=== PATIENT | female | born 1975 | race Caucasian/White ===

== ENCOUNTER 2017-05-30 17:52 | Inpatient (IN) | payer MEDICAID ==
[~2017-05-30] VITALS: Ht 165.1 cm; Wt 108.0 kg
[2017-05-30] MEDS ORDERED: morphine 4 MG/ML VIAL IV STA (20:08)
[2017-05-30] MEDS ORDERED: SOD CHLORIDE 0.9% 1,000 ML IV STA (20:08)
[2017-05-30] MEDS ORDERED: ONDANSETRON 4 MG INJ IV STA (20:08)
[2017-05-30] MEDS ORDERED: ACETAMINOPHEN 325 MG TAB PO ONE (20:30)
--- NOTE | 2017-05-30 20:31 | ERD ---
ER Documentation Chief Complaint Date/Time DATE: 05/30/17 TIME: 20:28 Chief Complaint VOMITTING SINCE THIS MORNING, CHILLS AND FEVER HPI 41-year-old female presents here in emergency department for multiple complaints. Patient is complaining of shortness of breath, generalized abdominal pain, flank pain, pelvic pain fever chills that started today. Patient denies any cough. Patient denies any chest pain. Patient complains of dizziness. Patient is complaining of generalized abdominal pain flank pain pelvic pain cramping pain succession scale, not better or worse with anything. Patient had an IUD placed 10 years ago, was felt to be due to be removed. Patient does not have any vaginal itching vaginal discharge. Patient denies any hematuria or dysuria. Patient did not take any medications to help with symptoms. Patient has not seen a doctor for years. ROS All systems reviewed and are negative except as per history of present illness. Medications Home Meds Discontinued Reported Medications [none] Unknown Strength No Conflict Check 05/30/17 Allergies Allergies: Coded Allergies: No Known Allergy (Unverified , 05/30/17) PMhx/Soc Medical and Surgical Hx: pt denies Surgical Hx History of Surgery: No Anesthesia Reaction: No Hx Neurological Disorder: No Hx Respiratory Disorders: No Hx Cardiac Disorders: No Hx Psychiatric Problems: No Hx Miscellaneous Medical Probl: No Hx Alcohol Use: No Hx Substance Use: No Hx Tobacco Use: No Smoking Status: Never smoker FmHx Family History: No coronary disease, No diabetes, No other Physical Exam Vitals Vital Signs Date Time Temp Pulse Resp B/P Pulse Ox O2 Delivery O2 Flow Rate FiO2 05/31/17 01:05 98.7 84 18 128/67 98 Room Air 05/30/17 19:03 102.5 99 24 146/71 100 05/30/17 18:05 99.9 103 25 138/78 100 Physical Exam GENERAL: The patient is well developed and appropriate for usual state of health, in no apparent distress. CHEST: Clear to auscultation bilaterally. There are no rales, wheezes or rhonchi. HEART: Regular rate and rhythm. No murmurs, clicks, rubs or gallops. No S3 or S4. ABDOMEN: Soft, generalized abdominal tenderness. Good bowel sounds. No rebound or guarding. No gross peritonitis. No gross organomegaly or masses. No Lund sign or McBurney point tenderness. BACK: No midline or flank tenderness. EXTREMITIES: Equal pulses bilaterally. There is no peripheral clubbing, cyanosis or edema. No focal swelling or erythema. Full range of motion. Grossly neurovascularly intact. NEURO: Alert and oriented. Cranial nerves 2-12 intact. Motor strength in all 4 extremities with 5/5 strength. Sensation grossly intact. Normal speech and gait. SKIN: There is no apparent rash or petechia. The skin is warm and dry. HEMATOLOGIC AND LYMPHATIC: There is no evidence of excessive bruising or lymphedema. No gross cervical, axillary, or inguinal lymphadenopathy. Result Diagram: 05/30/17202905/30/172029 Results 24 hrs Laboratory Tests Test 05/30/17 20:30 05/30/17 22:24 White Blood Count 22.710^3/ul Red Blood Count 4.2510^6/ul Hemoglobin 13.5g/dl Hematocrit 39.8% Mean Corpuscular Volume 93.6fl Mean Corpuscular Hemoglobin 31.8pg Mean Corpuscular Hemoglobin Concent 33.9g/dl Red Cell Distribution Width 14.0% Platelet Count 67365^3/UL Mean Platelet Volume 11.0fl Neutrophils % 88.9% Lymphocytes % 5.8% Monocytes % 4.1% Eosinophils % 0.0% Basophils % 0.4% Nucleated Red Blood Cells % 0.0/100WBC Neutrophils # 20.210^3/ul Lymphocytes # 1.310^3/ul Monocytes # 0.910^3/ul Eosinophils # 0.010^3/ul Basophils # 0.110^3/ul Nucleated Red Blood Cells # 0.010^3/ul Urine Color YELLOW Urine Clarity SLIGHTLY CLOUDY Urine pH 8.0 Urine Specific [place] 1.021 Urine Ketones 1+mg/dL Urine Nitrite NEGATIVEmg/dL Urine Bilirubin NEGATIVEmg/dL Urine Urobilinogen NEGATIVEmg/dL Urine Leukocyte Esterase 2+Herman/ul Urine Microscopic RBC 23/HPF Urine Microscopic WBC 15/HPF Urine Squamous Epithelial Cells FEW/HPF Urine Bacteria FEW/HPF Urine Hemoglobin 2+mg/dL Urine Glucose NEGATIVEmg/dL Urine Total Protein NEGATIVEmg/dl Sodium Level 137mmol/L Potassium Level 4.0mmol/L Chloride Level 105mmol/L Carbon Dioxide Level 20mmol/L Anion Gap 16 Blood Urea Nitrogen 14mg/dl Creatinine 0.77mg/dl Glucose Level 134mg/dl Lactic Acid Level 2.8mmol/L 1.7mmol/L Calcium Level 9.4mg/dl Total Bilirubin 0.5mg/dl Direct Bilirubin 0.00mg/dl Indirect Bilirubin 0.5mg/dl Aspartate Amino Transf (AST/SGOT) 31IU/L Alanine Aminotransferase (ALT/SGPT) 49IU/L Alkaline Phosphatase 106IU/L Troponin I < 0.012ng/ml Total Protein 8.5g/dl Albumin 4.5g/dl Globulin 4.00g/dl Albumin/Globulin Ratio 1.12 Lipase 110U/L Current Medications Medications (Trade) Dose Ordered Sig/Ida Route PRN Reason Start Time Stop Time Status Last Admin Dose Admin Sodium Chloride (NS) 1,000 ml @ 1,000 mls/hr Q1H STAT IV 05/30/17 20:08 05/30/17 21:07 DC 05/30/17 20:57 Morphine Sulfate (morphine) 4 mg ONCE STAT IV 05/30/17 20:08 05/30/17 20:10 DC 05/30/17 22:37 Ondansetron HCl (Zofran Inj) 4 mg ONCE STAT IV 05/30/17 20:08 05/30/17 20:10 DC 05/30/17 22:37 Acetaminophen (Tylenol Tab) 650 mg ONCE ONCE PO 05/30/17 20:30 05/30/17 20:31 DC 05/30/17 22:36 Sodium Chloride 2370 ml 2,370 ml BOLUS OVER 2 HOURS STAT IV* 05/30/17 21:14 05/30/17 21:17 DC 05/30/17 22:40 Ceftriaxone Sodium (Rocephin) 50 ml @ 100 mls/hr ONCE STAT IVPB 05/30/17 21:14 05/30/17 21:43 DC 05/30/17 22:38 IV Flush 10 ml 10 ml STK-MED ONCE .ROUTE 05/30/17 21:26 05/30/17 21:27 DC 05/30/17 21:37 Sodium Chloride (NS) 100 ml @ ud STK-MED ONCE .ROUTE 05/30/17 21:26 05/30/17 21:27 DC 05/30/17 21:37 Iohexol (Omnipaque 300mg/ ml) 150 ml STK-MED ONCE .ROUTE 05/30/17 21:26 05/30/17 21:27 DC 05/30/17 21:37 Patient was given medication for pain here in emergency department, after treatment, patient verbalized feeling much better. Patient's pain is improved. Patient was given Zofran here in the emergency department. After treatment, patient was able to tolerate po fluids here in the emergency department without any vomiting. There is no signs and symptoms of dehydration. Patient was given medicines for fever control here in the emergency department. After treatment, patient temperature improved and lower. Patient appears well and is hemodynamically stable. Normal saline IV bolus was given here in emergency department for rehydration, patient tolerated IV fluids. EKG was done, read by me and is normal sinus rhythm at a rate of 93, normal axis , there is no ST changes or changes in the EKG that indicates any cardiac emergencies at this time. Patient's EKG was also reviewed by Dr. Melgar. Impression: no acute findings on EKG PROCEDURE: US Pelvis Transabdominal and Transvaginal. CLINICAL INDICATION: Pelvic pain, IUD. TECHNIQUE: Multiple sonographic images of the pelvis were obtained utilizing balderas scale, Doppler and color flow imaging with transabdominal and endovaginal technique. The images were reviewed on a PACS workstation. COMPARISON: None. FINDINGS: The uterus is visualized and measures 10.5 x 5.9 x 5.6 cm. The endometrial echo complex measures 5.1 mm in thickness. Echogenic IUD is noted in the endometrial canal. Few small Nabothian cysts are seen in the cervix. No uterine masses are identified. The right ovary measures 2.7 x 1.5 x 1.4 cm . The left ovary is not well visualized. Both ovaries demonstrate a normal echogenicity and vascular flow. No adnexal masses or pelvic free fluid are noted. IMPRESSION: Echogenic IUD in the endometrial canal. Small Nabothian cysts in the cervix. Left ovary not well visualized. If characterization of this structure is needed repeat exam or MRI is recommended. If further characterization of the organs of the pelvis is needed MRI should be considered. RPTAT: AA .Dejon Krishnamurthy MD, Date Time Electronically viewed and signed by .Dejon Krishnamurthy MD, MD on 05/30/2017 21:13 .P/ CC: SIMON HUERTA NP PROCEDURE: CT ABDOMEN/PELVIS WITH CONTRAST CLINICAL INDICATION: 41-year-old female with abdominal pain. TECHNIQUE: The study was performed utilizing a GE [employer] VCT 64-slice CT scanner. Direct axial sections were obtained through the abdomen and pelvis with the use of 100 cc of Omnipaque-300 nonionic intravenous contrast material. Sagittal and coronal reformations were obtained. One or more of the following dose reduction techniques were utilized: automated exposure control, adjustment of the mA and/or kV according to patient's size or use of iterative reconstruction technique. The images were reviewed on a PACS workstation. CTD/ vol = 23.6 mGy; Total Exam DLP = 1315.6 mGy-cm. COMPARISON: None. FINDINGS: There is trace bibasilar subsegmental atelectasis. There is no evidence for significant pleural effusion. The liver has a normal size and contour. There is diffuse decreased density throughout the liver consistent with fatty infiltration but without focal areas of abnormal density or contrast enhancement. No intrahepatic nor extrahepatic biliary ductal dilatation is seen. The gallbladder demonstrates no wall thickening nor pericholecystic fluid. No biliary stones are evident. The pancreas is without areas of abnormal attenuation or contrast enhancement. This spleen is identified and has a normal size without abnormal density or contrast enhancement. The adrenal glands are unremarkable. The kidneys are functional bilaterally without abnormal density. No hydroureteronephrosis nor nephroureterolithiasis is evident. The urinary bladder contains urine. There is a mild hiatal hernia. There is a small umbilical hernia with an opening of 11 x 13 mm containing fat. There is mild retained stool identified within the ascending and transverse colon without obstruction. The appendix is visualized and is without edema or surrounding inflammatory reaction. The uterus is anteflexed. There is an intrauterine device. There is no significant free fluid. The aortoiliac vessels are without aneurysmal dilatation. The osseous structures are intact. IMPRESSION: 1. Hepatic steatosis. 2. Mild hiatal hernia. 3. Mild retained stool within the proximal colon without obstruction. 4. No CT evidence for appendicitis. 5. Intrauterine device. .Alex Clarke MD, MD Date Time Electronically viewed and signed by .Alex Clarke MD, MD on 05/30/2017 22:17 .M/ CC: SIMON HUERTA NP Severe Sepsis at 2109, source UTI, started on IV Rocephin, Fluid 30 mg/kg started immediately This Patient's infectious symptoms have not stabilized and the patient is at risk of rapid decompensation. The patient will be admitted for careful hydration, antibiotic therapy, and infectious source control. Severe Sepsis Assessment: Infectious Source: [pyleonephritis] End organ damage indicated by: [Lactate > 2.0 mmol/L Severe Sepsis Managment: Blood Cultures X 2 before broad spectrum antibiotics initiated within 3 hours of recognition. 30 ml/kg NS bolus Completed Initial Lactate: [2.8] Repeat Lactate [1.7] Critical Care: Time: [40] minutes Treatments/Evaluations: Emergent fluid management, while maintaining close respiratory support. Immediate broad spectrum antibiotic therapy. Simultaneous assessment for possible sources in order to direct therapy. Consideration for invasive and chemical support to prevent respiratory or cardiac collapse. Procedures/MDM Medical Decision Making: Patient symptoms consistent with pyelonephritis with severe sepsis. Patient lactic acid was elevated at 2.8, WBC at 22,000, patient was febrile and tachycardic upon arrival here in emergency department. Patient was given IV fluids here 30 mg/kg normal saline, IV Rocephin was given, patient appears once hemodynamically stable at this time. Patient will be admitted to the hospital. Case with my attending physician, Dr. Menard, will admit the patient to the hospital Departure Diagnosis: Primary Impression: Pyelonephritis Additional Impression: Severe sepsis Condition: Serious SIMON HUERTA NP May 30, 2017 20:31
[2017-05-30 20:49] LABS: ABNORMAL IP MESSAGE 1; BASOPHIL # 0.1 10^3/ul (0.0-0.1); BASOPHILS % 0.4 % (0.0-2.0); HEMATOCRIT 39.8 % (37.0-47.0); HEMOGLOBIN 13.5 g/dl (12.0-16.0); LYMPHOCYTES # 1.3 10^3/ul (0.8-2.9); LYMPHOCYTES % 5.8 % (15.0-51.0); MEAN CORPUSCULAR HEMOGLOBIN 31.8 pg (29.0-33.0); MEAN CORPUSCULAR HGB CONC 33.9 g/dl (32.0-37.0); MEAN CORPUSCULAR VOLUME 93.6 fl (82.0-101.0); MONOCYTE # 0.9 10^3/ul (0.3-0.9); MONOCYTES % 4.1 % (0.0-11.0); NEUTROPHIL # 20.2 10^3/ul (1.6-7.5); NEUTROPHILS % 88.9 % (39.0-77.0); PLATELET COUNT 311 10^3/UL (140-415); RED BLOOD COUNT 4.25 10^6/ul (4.20-5.40); WHITE BLOOD COUNT 22.7 10^3/ul (4.8-10.8)
[2017-05-30 20:58] LABS: ADD UMIC YES; UR ASCORBIC ACID NEGATIVE (NEGATIVE); UR BACTERIA FEW /HPF (NONE SEEN); UR BILIRUBIN (Dip) NEGATIVE (NEGATIVE); UR BLOOD (Dip) 2+ mg/dL (NEGATIVE); UR CLARITY SLIGHTLY CLOUDY (CLEAR); UR COLOR YELLOW (YELLOW); UR GLUCOSE (Dip) NEGATIVE (NEGATIVE); UR KETONES (Dip) 1+ mg/dL (NEGATIVE); UR LEUKOCYTE ESTERASE (Dip) 2+ Leu/ul (NEGATIVE); UR NITRITE (Dip) NEGATIVE (NEGATIVE); UR RBC 23 /HPF (0-5); UR SPECIFIC GRAVITY (Dip) 1.021 (1.003-1.030); UR SQUAMOUS EPITHELIAL CELL FEW /HPF (FEW); UR TOTAL PROTEIN (Dip) NEGATIVE (NEGATIVE); UR UROBILINOGEN (Dip) NEGATIVE (NEGATIVE)
[2017-05-30 21:03] LABS: POSITIVE DIFF @See below
[2017-05-30 21:07] LABS: ALBUMIN 4.5 g/dl (3.3-4.9); ALBUMIN/GLOBULIN RATIO 1.12; BILIRUBIN,INDIRECT 0.5 mg/dl (0-1.1); BILIRUBIN,TOTAL 0.5 mg/dl (0.2-1.3); CALCIUM 9.4 mg/dl (8.4-10.2); CREATININE 0.77 mg/dl (0.44-1.00); TOTAL PROTEIN 8.5 g/dl (6.1-8.1)
[2017-05-30] MEDS ORDERED: SODIUM CHLORIDE 0.9% 1L BAG IV* STA (21:14)
[2017-05-30] MEDS ORDERED: CEFTRIAXONE 1 GM/50 ML (PMX) 50 ML IVPB STA (21:14)
--- NOTE | 2017-05-30 21:14 | RADRPT ---
PROCEDURE: US Pelvis Transabdominal and Transvaginal. CLINICAL INDICATION: Pelvic pain, IUD. TECHNIQUE: Multiple sonographic images of the pelvis were obtained utilizing balderas scale, Doppler a nd color flow imaging with transabdominal and endovaginal technique. The images were reviewed on a PACS workstation. COMPARISON: None. FINDINGS: The uterus is visualized and measures 10.5 x 5.9 x 5.6 cm. The endometrial echo complex measures 5.1 mm in thickness. Echogenic IUD is noted in the endometrial canal. Few small Nabothian cysts are see n in the cervix. No uterine masses are identified. The right ovary measures 2.7 x 1.5 x 1.4 cm . The left ovary is not well visualized. Both ovaries demonstrate a normal echogenicity and vascular flow. No adnexal masses or pelvic free fluid are noted. IMPRESSION: Echogenic IUD in the endometrial canal. Small Nabothian cysts in the cervix. Left ovary not well visualized. If characterization of this structure is needed repeat exam or MRI i s recommended. If further characterization of the organs of the pelvis is needed MRI should be considered. RPTAT: AA .Dejon Krishnamurthy MD, MD Date Time Electronically viewed and signed by .Dejon Krishnamurthy MD, MD on 05/30/2017 21:13 .P/
[2017-05-30] MEDS ORDERED: IOHEXOL 300MG/ML 150 ML BTL ONE (21:26)
[2017-05-30] MEDS ORDERED: SOD CHLORIDE 0.9% 100 ML ONE (21:26)
--- NOTE | 2017-05-30 21:36 | RADRPT ---
PROCEDURE: XR Chest 1 View. CLINICAL INDICATION: Shortness of breath. TECHNIQUE: AP view of the chest was obtained. COMPARISON: None. FINDINGS: Heart is borderline large. Subsegmental atelectasis is seen in the bilateral lower lobes. No consoli dations are identified. No pneumothorax is seen. Osseous structures are intact. IMPRESSION: Borderline cardiomegaly. Subsegmental atelectasis in the bilateral lower lobes. RPTAT: AA .Dejon Krishnamurthy MD, MD Date Time Electronically viewed and signed by .Dejon rKishnamurthy MD, on 05/30/2017 21:36 .P/
--- NOTE | 2017-05-30 22:18 | RADRPT ---
PROCEDURE: CT ABDOMEN/PELVIS WITH CONTRAST CLINICAL INDICATION: 41-year-old female with abdominal pain. TECHNIQUE: The study was performed utilizing a GE [employer] VCT 64-slice CT scanner. Direct axia l sections were obtained through the abdomen and pelvis with the use of 100 cc of Omnipaque-300 [place] onic intravenous contrast material. Sagittal and coronal reformations were obtained. One or more of the following dose reduction techniques were utilized: automated exposure control, adjustment of the mA and/or kV according to patient's size or use of iterative reconstruction technique. The images were reviewed on a PACS workstation. CTD/vol = 23.6 mGy; Total Exam DLP = 1315.6 mGy-cm. COMPARISON: None. FINDINGS: There is trace bibasilar subsegmental atelectasis. There is no evidence for significant pleural eff usion. The liver has a normal size and contour. There is diffuse decreased density throughout the l iver consistent with fatty infiltration but without focal areas of abnormal density or contrast enha ncement. No intrahepatic nor extrahepatic biliary ductal dilatation is seen. The gallbladder demonst rates no wall thickening nor pericholecystic fluid. No biliary stones are evident. The pancreas is w ithout areas of abnormal attenuation or contrast enhancement. This spleen is identified and has a n ormal size without abnormal density or contrast enhancement. The adrenal glands are unremarkable. Th e kidneys are functional bilaterally without abnormal density. No hydroureteronephrosis nor nephrour eterolithiasis is evident. The urinary bladder contains urine. There is a mild hiatal hernia. There is a small umbilical hernia with an opening of 11 x 13 mm containing fat. There is mild retained stool identified within the ascending and transverse colon without obstruction. The appendix is vis ualized and is without edema or surrounding inflammatory reaction. The uterus is anteflexed. There i s an intrauterine device. There is no significant free fluid. The aortoiliac vessels are without an eurysmal dilatation. The osseous structures are intact. IMPRESSION: 1. Hepatic steatosis. 2. Mild hiatal hernia. 3. Mild retained stool within the proximal colon without obstruction. 4. No CT evidence for appendicitis. 5. Intrauterine device. .Gilbert Tricia, MD, MD Date Time Electronically viewed and signed by .Alex Clarke MD, MD on 05/30/2017 22:17 .M/
[2017-05-31] VITALS (13 sets, daily range): BP systolic 110–135; BP diastolic 57–87; PULSE 69–84; RESP 17–20; TEMP 98.7; Ht 165.1 cm; Wt 108.0 kg
[2017-05-31] MEDS: SOD CHLORIDE 0.9% 1,000 ML IV SCH ×3 (02:57→13:27)
[2017-05-31] MEDS ORDERED: ALBUTEROL/IPRATROPIUM (NEB) 3 ML AMP HHN PRN (03:00)
[2017-05-31] MEDS ORDERED: morphine 2 MG INJ IV PRN (03:00)
[2017-05-31] MEDS ORDERED: ACETAMINOPHEN 325 MG TAB PO PRN (03:00)
[2017-05-31] MEDS ORDERED: NACL 0.9% 3 ML SYG IV SCH (03:00)
[2017-05-31] MEDS ORDERED: morphine 4 MG/ML VIAL IV PRN (03:00)
[2017-05-31] MEDS ORDERED: ONDANSETRON 4 MG INJ IV PRN (03:00)
--- NOTE | 2017-05-31 04:11 | ERA ---
ER Documentation Chief Complaint Date/Time DATE: 05/30/17 Chief Complaint VOMITTING SINCE THIS MORNING, CHILLS AND FEVER HPI The patient is a 41-year-old female, presenting with acute left low back pain, diffuse abdominal pain, also with fever and vomiting for 1 day. She was initially seen in ED 2 by the [facility]. She denies chest pain, dyspnea, diarrhea, constipation, dysuria. She does not smoke nor drink. Past medical history: None Past surgical history: IUD ROS All systems reviewed and are negative except as per history of present illness. Medications Home Meds Discontinued Reported Medications [none] Unknown Strength No Conflict Check 05/30/17 Allergies Allergies: Coded Allergies: No Known Allergy (Unverified , 05/30/17) PMhx/Soc Medical and Surgical Hx: pt denies Medical Hx, pt denies Surgical Hx History of Surgery: No Anesthesia Reaction: No Hx Neurological Disorder: No Hx Respiratory Disorders: No Hx Cardiac Disorders: No Hx Psychiatric Problems: No Hx Miscellaneous Medical Probl: No Hx Alcohol Use: No Hx Substance Use: No Hx Tobacco Use: No Smoking Status: Never smoker Physical Exam Vitals Vital Signs Date Time Temp Pulse Resp B/P Pulse Ox O2 Delivery O2 Flow Rate FiO2 05/30/17 19:03 102.5 99 24 146/71 100 05/30/17 18:05 99.9 103 25 138/78 100 Physical Exam Const: No acute distress. Head: Atraumatic. Eyes: Normal Conjunctiva. ENT: Normal External Ears, Nose and Mouth. Neck: Full range of motion. No meningismus. Resp: Clear to auscultation bilaterally. Cardio: Regular rate and rhythm. Abd: Soft, non distended, normal bowel sounds, left CVA tenderness, diffuse abdominal mild tenderness, no rigidity, rebound, tenderness Skin: No petechiae or rashes. Back: No midline or flank tenderness. Ext: No cyanosis, or edema. Neur: Awake and alert. No focal deficit Psych: Normal Mood and Affect. Result Diagram: 05/30/17202905/30/172029 Results 24 hrs Laboratory Tests Test 05/30/17 20:30 05/30/17 22:24 White Blood Count 22.710^3/ul Red Blood Count 4.2510^6/ul Hemoglobin 13.5g/dl Hematocrit 39.8% Mean Corpuscular Volume 93.6fl Mean Corpuscular Hemoglobin 31.8pg Mean Corpuscular Hemoglobin Concent 33.9g/dl Red Cell Distribution Width 14.0% Platelet Count 66549^3/UL Mean Platelet Volume 11.0fl Neutrophils % 88.9% Lymphocytes % 5.8% Monocytes % 4.1% Eosinophils % 0.0% Basophils % 0.4% Nucleated Red Blood Cells % 0.0/100WBC Neutrophils # 20.210^3/ul Lymphocytes # 1.310^3/ul Monocytes # 0.910^3/ul Eosinophils # 0.010^3/ul Basophils # 0.110^3/ul Nucleated Red Blood Cells # 0.010^3/ul Urine Color YELLOW Urine Clarity SLIGHTLY CLOUDY Urine pH 8.0 Urine Specific [place] 1.021 Urine Ketones 1+mg/dL Urine Nitrite NEGATIVEmg/dL Urine Bilirubin NEGATIVEmg/dL Urine Urobilinogen NEGATIVEmg/dL Urine Leukocyte Esterase 2+Herman/ul Urine Microscopic RBC 23/HPF Urine Microscopic WBC 15/HPF Urine Squamous Epithelial Cells FEW/HPF Urine Bacteria FEW/HPF Urine Hemoglobin 2+mg/dL Urine Glucose NEGATIVEmg/dL Urine Total Protein NEGATIVEmg/dl Sodium Level 137mmol/L Potassium Level 4.0mmol/L Chloride Level 105mmol/L Carbon Dioxide Level 20mmol/L Anion Gap 16 Blood Urea Nitrogen 14mg/dl Creatinine 0.77mg/dl Glucose Level 134mg/dl Lactic Acid Level 2.8mmol/L 1.7mmol/L Calcium Level 9.4mg/dl Total Bilirubin 0.5mg/dl Direct Bilirubin 0.00mg/dl Indirect Bilirubin 0.5mg/dl Aspartate Amino Transf (AST/SGOT) 31IU/L Alanine Aminotransferase (ALT/SGPT) 49IU/L Alkaline Phosphatase 106IU/L Troponin I < 0.012ng/ml Total Protein 8.5g/dl Albumin 4.5g/dl Globulin 4.00g/dl Albumin/Globulin Ratio 1.12 Lipase 110U/L Current Medications Medications (Trade) Dose Ordered Sig/Ida Route PRN Reason Start Time Stop Time Status Last Admin Dose Admin Sodium Chloride (NS) 1,000 ml @ 1,000 mls/hr Q1H STAT IV 05/30/17 20:08 05/30/17 21:07 DC 05/30/17 20:57 Morphine Sulfate (morphine) 4 mg ONCE STAT IV 05/30/17 20:08 05/30/17 20:10 DC 05/30/17 22:37 Ondansetron HCl (Zofran Inj) 4 mg ONCE STAT IV 05/30/17 20:08 05/30/17 20:10 DC 05/30/17 22:37 Acetaminophen (Tylenol Tab) 650 mg ONCE ONCE PO 05/30/17 20:30 05/30/17 20:31 DC 05/30/17 22:36 Sodium Chloride 2370 ml 2,370 ml BOLUS OVER 2 HOURS STAT IV* 05/30/17 21:14 05/30/17 21:17 DC 05/30/17 22:40 Ceftriaxone Sodium (Rocephin) 50 ml @ 100 mls/hr ONCE STAT IVPB 05/30/17 21:14 05/30/17 21:43 DC 05/30/17 22:38 IV Flush 10 ml 10 ml STK-MED ONCE .ROUTE 05/30/17 21:26 05/30/17 21:27 DC 05/30/17 21:37 Sodium Chloride (NS) 100 ml @ ud STK-MED ONCE .ROUTE 05/30/17 21:26 05/30/17 21:27 DC 05/30/17 21:37 Iohexol (Omnipaque 300mg/ ml) 150 ml STK-MED ONCE .ROUTE 05/30/17 21:26 05/30/17 21:27 DC 05/30/17 21:37 Procedures/[place] [id number] Radiology Main Line: [phone] DIAGNOSTIC IMAGING REPORT Patient: MAXIMILIAN GARCIA : 1975 Age: 41 Sex: F MR #: [id number] DOS: 05/30/172007 Ordering MD: SIMON HUERTA NP Location: [facility] Room/Bed: PROCEDURE: US Pelvis Transabdominal and Transvaginal. CLINICAL INDICATION: Pelvic pain, IUD. TECHNIQUE: Multiple sonographic images of the pelvis were obtained utilizing balderas scale, Doppler and color flow imaging with transabdominal and endovaginal technique. The images were reviewed on a PACS workstation. COMPARISON: None. FINDINGS: The uterus is visualized and measures 10.5 x 5.9 x 5.6 cm. The endometrial echo complex measures 5.1 mm in thickness. Echogenic IUD is noted in the endometrial canal. Few small Nabothian cysts are seen in the cervix. No uterine masses are identified. The right ovary measures 2.7 x 1.5 x 1.4 cm . The left ovary is not well visualized. Both ovaries demonstrate a normal echogenicity and vascular flow. No adnexal masses or pelvic free fluid are noted. IMPRESSION: Echogenic IUD in the endometrial canal. Small Nabothian cysts in the cervix. Left ovary not well visualized. If characterization of this structure is needed repeat exam or MRI is recommended. If further characterization of the organs of the pelvis is needed MRI should be considered. RPTAT: AA .Dejon Krishnamurthy MD, MD Date Time Electronically viewed and signed by .Dejon Krishnamurthy MD, MD on 05/30/2017 21:13 .P/ CC: SIMON HUERTA NP [place] [id number] Radiology Main Line: [phone] DIAGNOSTIC IMAGING REPORT Patient: MAXIMILIAN GARCIA : 1975 Age: 41 Sex: F MR #: [id number] DOS: 05/30/172007 Ordering MD: SIMON HUERTA NP Location: [facility] Room/Bed: PROCEDURE: CT ABDOMEN/PELVIS WITH CONTRAST CLINICAL INDICATION: 41-year-old female with abdominal pain. TECHNIQUE: The study was performed utilizing a [employer] VCT 64-slice CT scanner. Direct axial sections were obtained through the abdomen and pelvis with the use of 100 cc of Omnipaque-300 nonionic intravenous contrast material. Sagittal and coronal reformations were obtained. One or more of the following dose reduction techniques were utilized: automated exposure control, adjustment of the mA and/or kV according to patient's size or use of iterative reconstruction technique. The images were reviewed on a PACS workstation. CTD/ vol = 23.6 mGy; Total Exam DLP = 1315.6 mGy-cm. COMPARISON: None. FINDINGS: There is trace bibasilar subsegmental atelectasis. There is no evidence for significant pleural effusion. The liver has a normal size and contour. There is diffuse decreased density throughout the liver consistent with fatty infiltration but without focal areas of abnormal density or contrast enhancement. No intrahepatic nor extrahepatic biliary ductal dilatation is seen. The gallbladder demonstrates no wall thickening nor pericholecystic fluid. No biliary stones are evident. The pancreas is without areas of abnormal attenuation or contrast enhancement. This spleen is identified and has a normal size without abnormal density or contrast enhancement. The adrenal glands are unremarkable. The kidneys are functional bilaterally without abnormal density. No hydroureteronephrosis nor nephroureterolithiasis is evident. The urinary bladder contains urine. There is a mild hiatal hernia. There is a small umbilical hernia with an opening of 11 x 13 mm containing fat. There is mild retained stool identified within the ascending and transverse colon without obstruction. The appendix is visualized and is without edema or surrounding inflammatory reaction. The uterus is anteflexed. There is an intrauterine device. There is no significant free fluid. The aortoiliac vessels are without aneurysmal dilatation. The osseous structures are intact. IMPRESSION: 1. Hepatic steatosis. 2. Mild hiatal hernia. 3. Mild retained stool within the proximal colon without obstruction. 4. No CT evidence for appendicitis. 5. Intrauterine device. .Alex Clarke MD, MD Date Time Electronically viewed and signed by .Alex Clarke MD, on 05/30/2017 22:17 .M/ CC: SIMON HUERTA [place] [id number] Radiology Main Line: [phone] DIAGNOSTIC IMAGING REPORT Patient: MAXIMILIAN GARCIA : 1975 Age: 41 Sex: F MR #: [id number] DOS: 05/30/172008 Ordering MD: SIMON HUERTA NP Location: [facility] Room/Bed: PROCEDURE: XR Chest 1 View. CLINICAL INDICATION: Shortness of breath. TECHNIQUE: AP view of the chest was obtained. COMPARISON: None. FINDINGS: Heart is borderline large. Subsegmental atelectasis is seen in the bilateral lower lobes. No consolidations are identified. No pneumothorax is seen. Osseous structures are intact. IMPRESSION: Borderline cardiomegaly. Subsegmental atelectasis in the bilateral lower lobes. RPTAT: AA .Dejon Krishnamurthy MD, Date Time Electronically viewed and signed by .Dejon Krishnamurthy MD, MD on 05/30/2017 21:36 .P/ CC: SIMON HUERTA NP MEDICAL MAKING DECISION: The patient is a 41-year-old female, presenting with acute severe sepsis due to acute left pyelonephritis. She was treated with Tylenol for fever, morphine 4 mg IV for pain and Zofran formula IV for nausea and Rocephin IV for acute pyelonephritis The differential diagnoses considered include but are not limited to cholelithiasis, cholecystitis, cystitis, pancreatitis, hepatitis, gastritis, peptic ulcer disease, gastric ulcer, appendicitis, diverticulitis, cholangitis, choledocholithiasis, partial small bowel obstruction. Admit MDM: Patient's infectious symptoms have not stabilized and the patient is at risk of rapid decompensation. The patient will be admitted for careful hydration, antibiotic therapy, and infectious source control. Severe Sepsis criteria: Infectious source: left pyelonephritis End organ damage indicated by: Lactate > 2.0 mmol/L Sepsis Management: Time of recognition of severe sepsis/septic shock: 20:40 Within 3 hours of recognition: Blood cultures x 2 before broad-spectrum antibiotics: Yes 30 ml/kg NS bolus completed Initial lactate 2.8 Repeat lactate pending Critical Care: Critical care time 35 minutes excluding billable procedure Emergent fluid management while maintaining close respiratory support. Provision of immediate and broad-spectrum antibiotic therapy. Simultaneous assessment for possible sources in order to direct targeted therapy. Consideration for invasive and chemical support to prevent cardiopulmonary collapse. Septic Shock Assessment: Any lactic acid > 4.0 no Persistent hypotension (SBP < 90 or 40 mmHg drop, MAP < 65) despite 30 mL/kg IV fluid bolusno Departure Diagnosis: Primary Impression: Pyelonephritis Additional Impression: Severe sepsis Condition: Stable Additional Instructions: I discussed the findings with the patient. I discussed the patient with his physician Dr. Mccracken at 10:50 pm who was made aware of the lab, the treatment, the patient condition. The patient is admitted to LINDA Benitez MD May 31, 2017 04:04
--- NOTE | 2017-05-31 06:39 | HP ---
Date/Time of Note Date/Time of Note DATE: 05/31/17 TIME: 06:31 Assessment/Plan VTE Prophylaxis VTE Prophylaxis Intervention: SCD's Lines/Catheters IV Catheter Type (from Nrs): Peripheral IV Urinary Cath still in place: No Assessment/Plan Assessment/Plan 1. Sepsis, as evidenced by fever and leukocytosis, secondary to UTI with probable left-sided pyelonephritis -IV antibiotic -Follow-up blood culture and urine culture results 2. Morbid obesity with a BMI of almost 40 -Weight reduction was advised HPI/ROS Admit Date/Time Admit Date/Time May 30, 2017 at 22:48 Hx of Present Illness This is a 41-year-old patient morbidly obese female with no significant past medical history who presented to the emergency department complaining of left flank pain. Symptom started 2 days ago and has been associated with subjective fever. Denied dysuria, chest pain, shortness of breath, nausea, vomiting. She denied history of UTI or pyelonephritis. When she presented to the ER, she was febrile with a temperature as high as 102.5, labs shows a WBC of 22,000. Urinalysis was consistent with UTI. CT abdomen/pelvis showed Mild retained stool within the proximal colon without obstruction, hiatal hernia and hepatic steatosis. . PMH/Family/Social Social History Smoking Status: Never smoker Exam/Review of Systems Vital Signs Vitals Vital Signs Date Time Temp Pulse Resp B/P Pulse Ox O2 Delivery O2 Flow Rate FiO2 05/31/17 04:48 98.4 80 17 117/64 99 05/31/17 01:05 Room Air Intake and Output 05/30/17 05/30/17 05/31/17 15:00 23:00 07:00 Intake Total 480 ml Balance 480 ml Exam Constitutional: alert, oriented, well developed Head: atraumatic, normocephalic Eyes: EOMI, PERRL Respiratory: clear to auscultation, normal air movement Cardiovascular: nl pulses, regular rate and rhythm Gastrointestinal: other (Left flank tenderness), soft Extremities: normal pulses Labs Result Diagram: 05/30/17202905/30/172029 Medications Medications Current Medications Morphine Sulfate 4 mg 4 mg Q4H PRN IV PAIN Last administered on 05/31/17t 02:44 ; Admin Dose 4 MG; Start 05/31/17 at 03:00 Sodium Chloride (NS) 1,000 ml @ 100 mls/hr Q10H IV Last administered on t 02:57; Admin Dose 100 MLS/HR; Start 05/31/17 at 02:35; Stop 06/01/17 at 09: 00 Ondansetron HCl (Zofran Inj) 4 mg Q6H PRN IV NAUSEA AND/OR VOMITING; Start at 03:00 Acetaminophen (Tylenol Tab) 650 mg Q6H PRN PO PAIN LEVEL 1-3 OR FEVER; Start at 03:00 Heparin Sodium (Porcine) 5000 unit 5,000 unit Q12 SC ; Start 05/31/17 at 09:00 Cefepime HCl (Maxipime 1gm/50 ml (Pmx)) 50 ml @ 100 mls/hr Q12 IVPB ; Start at 09:00 RAFI GARCIA MD May 31, 2017 06:39
[2017-05-31] MEDS ORDERED: MAGNESIUM HYDROXIDE 30ML CUP PO ONE (07:00)
[2017-05-31 07:48] LABS: BASOPHILS % 0.3 % (0.0-2.0); EOSINOPHILS % 0.1 % (0.0-7.0); HEMATOCRIT 33.9 % (37.0-47.0); HEMOGLOBIN 11.2 g/dl (12.0-16.0); LYMPHOCYTES # 1.4 10^3/ul (0.8-2.9); LYMPHOCYTES % 10.6 % (15.0-51.0); MEAN CORPUSCULAR HEMOGLOBIN 31.8 pg (29.0-33.0); MEAN CORPUSCULAR VOLUME 96.3 fl (82.0-101.0); MEAN PLATELET VOLUME 11.3 fl (7.4-10.4); MONOCYTE # 0.8 10^3/ul (0.3-0.9); MONOCYTES % 5.7 % (0.0-11.0); NEUTROPHIL # 10.9 10^3/ul (1.6-7.5); PLATELET COUNT 253 10^3/UL (140-415); RED BLOOD COUNT 3.52 10^6/ul (4.20-5.40); RED CELL DISTRIBUTION WIDTH 14.5 % (11.5-14.5); WHITE BLOOD COUNT 13.1 10^3/ul (4.8-10.8)
[2017-05-31 08:14] LABS: ALBUMIN 3.1 g/dl (3.3-4.9); BILIRUBIN,INDIRECT 0.2 mg/dl (0-1.1); BILIRUBIN,TOTAL 0.2 mg/dl (0.2-1.3); CALCIUM 7.5 mg/dl (8.4-10.2); CREATININE 0.71 mg/dl (0.44-1.00); POTASSIUM 3.9 mmol/L (3.5-5.1); TOTAL PROTEIN 6.2 g/dl (6.1-8.1)
[2017-05-31] MEDS: CEFEPIME 1GM/50 ML (PMX) 50 ML IVPB SCH ×2 (09:19→21:18)
[2017-05-31] MEDS: HEPARIN 5,000 UNIT/0.5 ML VIAL SC SCH ×2 (09:26→21:18)
--- NOTE | 2017-05-31 10:22 | PN ---
Date/Time of Note Date/Time of Note DATE: 05/31/17 TIME: 10:20 Assessment/Plan VTE Prophylaxis VTE Prophylaxis Intervention: ambulation, SCD's Lines/Catheters IV Catheter Type (from Nrs): Peripheral IV Urinary Cath still in place: No Assessment/Plan Chief Complaint/Hosp Course 1. Sepsis, as evidenced by fever and leukocytosis, secondary to UTI -Continue IV antibiotic -Follow-up cultures. 2. Morbid obesity with a BMI of almost 40 -Weight reduction was advised 3. Anemia, likely dilutional. H&H stable. Will monitor. Plan: Continue current medical management. Follow-up cultures. Patient was seen in collaboration with . Problems: Subjective 24 Hr Interval Summary Free Text/Dictation Patient remains afebrile. No further abdominal pain. Denies dysuria or hematuria. Exam/Review of Systems Vital Signs Vitals Vital Signs Date Time Temp Pulse Resp B/P Pulse Ox O2 Delivery O2 Flow Rate FiO2 05/31/17 08:00 73 05/31/17 06:58 98.3 17 110/57 97 05/31/17 01:05 Room Air Intake and Output 05/30/17 05/30/17 05/31/17 15:00 23:00 07:00 Intake Total 480 ml Balance 480 ml Exam General: Obese female, not in any acute distress . HEENT: Normocephalic, Atraumatic, No laceration or hematoma; Eyes: PEERL, Conjunctiva clear, Anicteric sclera Neck: Supple without any lymphadenopathy, nontender, no JVD, no carotid bruits, trachea midline, no thyromegaly Cardiac: S1, S2 auscultated, regular rhythm and rate, no mumurs or gallop Pulmonary: Normal respiratory effort. Chest clear to auscultation bilaterally, no adventitious breath sounds GI: Abdomen normal to inspection. Soft, non tender, non- distended, no masses, no rebound tenderness or guarding. Bowel sounds active on all four quadrants Genitourinary: Deferred Extremities: No cyanosis, clubbing, or edema. Pulses [2+] bilaterally. Full ROM on all four extremities. No focal weakness appreciated. Neurologic: Alert to person, place, time, and situation. Affect appropriate, intact sensation. Skin: Clean,dry, and intact. No ecchymosis, no rashes, or lesions Results Result Diagram: 05/31/17 0643 05/31/17 0643 Results 24 hrs Laboratory Tests Test 05/30/17 20:30 05/30/17 22:24 05/31/17 02:40 05/31/17 06:43 White Blood Count 22.7 H 13.1 #H Red Blood Count 4.25 3.52 L Hemoglobin 13.5 11.2 L Hematocrit 39.8 33.9 L Mean Corpuscular Volume 93.6 96.3 Mean Corpuscular Hemoglobin 31.8 31.8 Mean Corpuscular Hemoglobin Concent 33.9 33.0 Red Cell Distribution Width 14.0 14.5 Platelet Count 311 253 Mean Platelet Volume 11.0 H 11.3 H Neutrophils % 88.9 H 83.0 H Lymphocytes % 5.8 L 10.6 L Monocytes % 4.1 5.7 Eosinophils % 0.0 0.1 Basophils % 0.4 0.3 Nucleated Red Blood Cells % 0.0 0.0 Neutrophils # 20.2 H 10.9 H Lymphocytes # 1.3 1.4 Monocytes # 0.9 0.8 Eosinophils # 0.0 0.0 Basophils # 0.1 0.0 Nucleated Red Blood Cells # 0.0 0.0 Urine Color YELLOW Urine Clarity SLIGHTLY CLOUDY A Urine pH 8.0 Urine Specific [place] 1.021 Urine Ketones 1+ H Urine Nitrite NEGATIVE Urine Bilirubin NEGATIVE Urine Urobilinogen NEGATIVE Urine Leukocyte Esterase 2+ H Urine Microscopic RBC 23 H Urine Microscopic WBC 15 H Urine Squamous Epithelial Cells FEW Urine Bacteria FEW A Urine Hemoglobin 2+ H Urine Glucose NEGATIVE Urine Total Protein NEGATIVE Sodium Level 137 141 Potassium Level 4.0 3.9 Chloride Level 105 112 H Carbon Dioxide Level 20 L 23 Anion Gap 16 10 # Blood Urea Nitrogen 14 9 Creatinine 0.77 0.71 Glucose Level 134 92 # Lactic Acid Level 2.8 *H 1.7 1.2 Calcium Level 9.4 7.5 L Total Bilirubin 0.5 0.2 Direct Bilirubin 0.00 0.00 Indirect Bilirubin 0.5 0.2 Aspartate Amino Transf (AST/SGOT) 31 23 Alanine Aminotransferase (ALT/SGPT) 49 45 Alkaline Phosphatase 106 65 Troponin I < 0.012 Total Protein 8.5 H 6.2 # Albumin 4.5 3.1 #L Globulin 4.00 H 3.10 Albumin/Globulin Ratio 1.12 1.00 Lipase 110 Phosphorus Level 3.0 Magnesium Level 2.0 Medications Medications Current Medications Morphine Sulfate 4 mg 4 mg Q4H PRN IV PAIN Last administered on 05/31/17 02:44 ; Admin Dose 4 MG; Start 05/31/17 at 03:00 Sodium Chloride (NS) 1,000 ml @ 100 mls/hr Q10H IV Last administered on 02:57; Admin Dose 100 MLS/HR; Start 05/31/17 at 02:35; Stop 06/01/17 at 09: 00 Ondansetron HCl (Zofran Inj) 4 mg Q6H PRN IV NAUSEA AND/OR VOMITING; Start at 03:00 Acetaminophen (Tylenol Tab) 650 mg Q6H PRN PO PAIN LEVEL 1-3 OR FEVER; Start at 03:00 Heparin Sodium (Porcine) 5000 unit 5,000 unit Q12 SC Last administered on 09:26; Admin Dose 5,000 UNIT; Start 05/31/17 at 09:00 Cefepime HCl (Maxipime 1gm/50 ml (Pmx)) 50 ml @ 100 mls/hr Q12 IVPB Last administered on 05/31/17 09:19; Admin Dose 100 MLS/HR; Start 05/31/17 at 09:00 DAVID MARQUEZ NP May 31, 2017 10:22
[2017-05-31] MEDS: ACETAMINOPHEN 325 MG TAB PO PRN (14:46)
[2017-06-01] VITALS (7 sets, daily range): BP systolic 126–137; BP diastolic 69–79; PULSE 53–72; RESP 15–20
[2017-06-01] MEDS: SOD CHLORIDE 0.9% 1,000 ML IV SCH (05:45)
[2017-06-01 07:14] LABS: BASOPHIL # 0.1 10^3/ul (0.0-0.1); BASOPHILS % 0.8 % (0.0-2.0); EOSINOPHILS # 0.2 10^3/ul (0.0-0.5); EOSINOPHILS % 2.6 % (0.0-7.0); HEMATOCRIT 35.4 % (37.0-47.0); HEMOGLOBIN 11.7 g/dl (12.0-16.0); LYMPHOCYTES # 2.8 10^3/ul (0.8-2.9); LYMPHOCYTES % 36.8 % (15.0-51.0); MEAN CORPUSCULAR HEMOGLOBIN 31.5 pg (29.0-33.0); MEAN CORPUSCULAR HGB CONC 33.1 g/dl (32.0-37.0); MEAN CORPUSCULAR VOLUME 95.2 fl (82.0-101.0); MONOCYTE # 0.8 10^3/ul (0.3-0.9); MONOCYTES % 10.3 % (0.0-11.0); NEUTROPHIL # 3.7 10^3/ul (1.6-7.5); NEUTROPHILS % 49.2 % (39.0-77.0); PLATELET COUNT 271 10^3/UL (140-415); RED BLOOD COUNT 3.72 10^6/ul (4.20-5.40); RED CELL DISTRIBUTION WIDTH 14.3 % (11.5-14.5); WHITE BLOOD COUNT 7.6 10^3/ul (4.8-10.8)
[2017-06-01 08:14] LABS: CALCIUM 8.4 mg/dl (8.4-10.2); CREATININE 0.75 mg/dl (0.44-1.00); MAGNESIUM 2.4 mg/dl (1.7-2.5); PHOSPHORUS 3.1 mg/dl (2.5-4.9)
[2017-06-01] MEDS: CEFEPIME 1GM/50 ML (PMX) 50 ML IVPB SCH (08:23)
[2017-06-01] MEDS: HEPARIN 5,000 UNIT/0.5 ML VIAL SC SCH (08:26)
--- NOTE | 2017-06-01 09:03 | DS ---
Date/Time of Note Date/Time of Note DATE: 06/01/17 TIME: 08:58 Discharge Summary Admission/Discharge Info Admit Date/Time May 30, 2017 at 22:48 Discharge Date/Time June [id number] Discharge Diagnosis Right pyelonephritis; hepatic steatosis; obesity.; Lactic acidosis with sepsis on admission-resolved Patient Condition: Fair Procedures Pelvic ultrasound; abdominal pelvic CT scan; IV antibiotics Hx of Present Illness This is a 41-year-old patient morbidly obese female with no significant past medical history who presented to the emergency department complaining of left flank pain. Symptom started 2 days ago and has been associated with subjective fever. Denied dysuria, chest pain, shortness of breath, nausea, vomiting. She denied history of UTI or pyelonephritis. When she presented to the ER, she was febrile with a temperature as high as 102.5, labs shows a WBC of 22,000. Urinalysis was consistent with UTI. CT abdomen/pelvis showed Mild retained stool within the proximal colon without obstruction, hiatal hernia and hepatic steatosis. . Hospital Course 1. Sepsis, as evidenced by fever and leukocytosis, secondary to UTI -Continue IV antibiotic -Follow-up cultures. 2. Morbid obesity with a BMI of almost 40 -Weight reduction was advised 3. Anemia, likely dilutional. H&H stable. Will monitor. Plan: Continue current medical management. Follow-up cultures. Patient was seen in collaboration with . Joyce 41-year-old obese female generally healthy. Her primary care physicians are at [facility]. She was admitted with symptoms and elevated lactic acid level. With antibiotic administration she improved rapidly and nicely. Regrettably her urine culture was collected after dose of antibiotics. According to the lab it is showing some gram-positive organisms but not much growth. She is improved to the point where she is now taking p.o. well she is not dehydrated and her status is improved. As such she will be treated as an outpatient. Given the insecurity well with the cultures are she will have a single dose of fosfomycin she will be discharged on levofloxacin 500 mg a day for 10 days. Home Meds Discontinued Reported Medications [none] Unknown Strength No Conflict Check 05/30/17 Follow-up Plan With primary care physician at [facility] in 2 weeks Primary Care Provider Care Physician No Primary Time spent on discharge: > 30 minutes Pending Labs Laboratory Tests Test 06/01/17 06:34 White Blood Count 7.610^3/ul (4.8-10.8) Red Blood Count 3.7210^6/ul (4.20-5.40) Hemoglobin 11.7g/dl (12.0-16.0) Hematocrit 35.4% (37.0-47.0) Mean Corpuscular Volume 95.2fl (82.0-101.0) Mean Corpuscular Hemoglobin 31.5pg (29.0-33.0) Mean Corpuscular Hemoglobin Concent 33.1g/dl (32.0-37.0) Red Cell Distribution Width 14.3% (11.5-14.5) Platelet Count 83033^3/UL (140-415) Mean Platelet Volume 11.0fl (7.4-10.4) Neutrophils % 49.2% (39.0-77.0) Lymphocytes % 36.8% (15.0-51.0) Monocytes % 10.3% (0.0-11.0) Eosinophils % 2.6% (0.0-7.0) Basophils % 0.8% (0.0-2.0) Nucleated Red Blood Cells % 0.0/100WBC (0.0-0.0) Neutrophils # 3.710^3/ul (1.6-7.5) Lymphocytes # 2.810^3/ul (0.8-2.9) Monocytes # 0.810^3/ul (0.3-0.9) Eosinophils # 0.210^3/ul (0.0-0.5) Basophils # 0.110^3/ul (0.0-0.1) Nucleated Red Blood Cells # 0.010^3/ul (0.0-0.0) Sodium Level 140mmol/L (135-144) Potassium Level 4.0mmol/L (3.5-5.1) Chloride Level 110mmol/L (97-110) Carbon Dioxide Level 24mmol/L (21-31) Anion Gap 10 (8-16) Blood Urea Nitrogen 8mg/dl (7-20) Creatinine 0.75mg/dl (0.44-1.00) Glucose Level 89mg/dl (70-220) Calcium Level 8.4mg/dl (8.4-10.2) Phosphorus Level 3.1mg/dl (2.5-4.9) Magnesium Level 2.4mg/dl (1.7-2.5) BREN VILLANUEVA MD Jun 01, 2017 09:03
--- NOTE | 2017-06-01 09:04 | PDOCDIS ---
Discharge Instructions DIAGNOSIS Discharge Diagnosis Right pyelonephritis; hepatic steatosis; obesity.; Lactic acidosis with sepsis on admission-resolved CONDITION Patient Condition: Fair HOME CARE INSTRUCTIONS: Diet Instructions: Reduced Calorie ACTIVITY: Activity Restrictions: No Restrictions FOLLOW UP/APPOINTMENTS Follow-up Plan With primary care physician at [facility] in 2 weeks SCHOOL/WORK RELEASE May return to School/Work with: No Restrictions BREN VILLANUEVA MD Jun 01, 2017 09:04
[2017-06-01] MEDS ORDERED: LEVO500T72 PO (09:05)
[2017-06-01] MEDS ORDERED: FOSFOMYCIN 3 GM PACKET PO ONE (09:30)
[2017-06-01] MEDS: ACETAMINOPHEN 325 MG TAB PO PRN (10:54)
[2017-06-02] MEDS ORDERED: LEVOFLOXACIN 500 MG TAB PO SCH (06:00)
== END 2017-06-01 12:16 | disposition home or self-care (01) | DRG 872 ==
LOC: FTE 17:52 → TEL 22:48
PROVIDERS: ADMIT Internal Medicine; ATTEND Internal Medicine
DX: A41.9 Sepsis, unspecified organism (principal); Z68.41 Body mass index [BMI] 40.0-44.9, adult; K76.0 Fatty (change of) liver, not elsewhere classified; N12 Tubulo-interstitial nephritis, not specified as acute or chronic; E66.01 Morbid (severe) obesity due to excess calories; D64.9 Anemia, unspecified
CPT/HCPCS: 71010; 74177; 76830; 76856; 80048; 80053; 81001; 83605; 83690; 83735; 84100; 84484; 85025; 87040; 87086; 93005; J0692; J0696; J1644; J2270; J2405; J7030; Q9967